=== PATIENT | male | born 1980 | race Caucasian/White ===

== ENCOUNTER → 2021-05-25 | Outpatient (CLI) | payer BC ==
[~2021-05-25] MED LIST: BUSP10TA PO; CIPR500T86 PO; ESCI20TA8 PO; LOSA100T14 PO; TRAM50TA PO
== END | disposition home or self-care (01) ==
LOC: NPLAB 13:15
PROVIDERS: ATTEND Urology
DX: Z98.52 Vasectomy status (principal)
CPT/HCPCS: 89310

== ENCOUNTER 2022-04-20 08:55 | Emergency (ER) | payer BC ==
[~2022-04-20] VITALS: Ht 182.9 cm; Wt 122.5 kg
--- NOTE | 2022-04-20 08:58 | NUR ---
ARRIVAL PT ARRIVED AMBULATORY TO ED 4 WITH C/O CHEST PAIN SINCE YESTERDAY. PT SAYS ITS CONSTANT AND A 4/10 AT THIS TIME. YESTERDAY IT WAS THE WORST PAIN HE HAS EVER FELT. VITALS, LABS, IV, EKG DONE AND DR NOTIFIED.
[2022-04-20 09:11] VITALS: BP 172/87
[2022-04-20] MEDS ORDERED: ASPIRIN ONE (09:19)
[2022-04-20 09:23] LABS: BASOPHIL % 0.4 % (0.0-0.2); EOSINOPHIL % 0.4 % (0.0-5.0); LYMPHOCYTES % 17.7 % (24.0-44.0); MEAN CORP HGB 30.6 pg (26-34); MONOCYTES # 0.8 10^3/uL (0.3-0.8); MONOCYTES % 18.4 % (5.0-12.0); NEUTROPHIL # 2.8 10^3/uL (1.8-7.7); NEUTROPHILS % 62.9 % (41.0-85.0); PLATELET COUNT 189 10^3/uL (150-400); RED CELL DISTRIBUTION WIDTH 12.3 % (11.5-14.5)
[2022-04-20] MEDS: ASPIRIN PO PRN (09:23)
--- NOTE | 2022-04-20 09:27 | PCM.EKG ---
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
--- NOTE | 2022-04-20 09:32 | ER.PDOC ---
General Chief Complaint: Chest Pain-Cardiac Nature Stated Complaint: CHEST PAINS,SOB Time seen by MD: 09:00 Source: patient Exam Limitations: no limitations History of Present Illness Initial Comments Patient is a 41-year-old man with past medical history of hypertension hypercholesterol who comes in with chest pain that started last night. Patient states that technically chest pain started yesterday afternoon but just got acutely worse last night. Patient states that it is like a pressure sensation that radiates up his neck patient states that the pain is worse when he lays flat and down better when he sits up. Patient states that he may have had some associated symptoms of some mild shortness of breath but denies any diaphoresis nausea or vomiting. Patient states that his brother at 39 of a heart attack so he she has been very diligent anytime he has chest pain to come in and get evaluated. Allergies: Coded Allergies: No Known Drug Allergies (Unverified Allergy, Unknown, 01/31/21) Home Meds Active Scripts Ciprofloxacin Hcl (CIPRO) 500 Mg Tablet, 1 TAB PO BID for 7 Days, #10 TAB 0 Refills Prov:TYE BOWSER MD 02/01/21 Tramadol Hcl (TRAMADOL HCL) 50 Mg Tablet, 50 MG PO Q6 PRN for PAIN, #20 TABLET Prov:TYE BOWSER MD 02/01/21 Reported Medications Buspirone Hcl (BUSPIRONE HCL) 10 Mg Tablet, 2 TAB PO HS, #60 TAB 1 Refill 01/31/21 Losartan Potassium (LOSARTAN POTASSIUM) 100 Mg Tablet, 1 TAB PO HS, #30 TAB 5 Refills 01/31/21 Escitalopram Oxalate (ESCITALOPRAM OXALATE) 20 Mg Tablet, 1 TAB PO HS, #30 TAB 5 Refills 01/31/21 Past Medical History Medical History: high cholesterol, hypertension Family History Significant Family History: other (Brother of heart attack at age 39) Social History Smoking: non-smoker Alcohol Use: heavy Drug Use: none Reviewed Nursing Reviewed: Vital Signs, Abn. Noted, Nursing Assessment Constitutional: denies no symptoms reported, denies see HPI, denies chills, denies diaphoresis, denies fever, denies malaise, denies weakness, denies other EENTM: throat pain Respiratory: shortness of breath Cardiovascular: chest pain Gastrointestinal: denies no symptoms reported, denies see HPI, denies abdomen distended, denies abdominal pain, denies blood streaked bowels, denies constipated, denies diarrhea, denies difficulty swallowing, denies nausea, denies poor appetite, denies poor fluid intake, denies rectal bleeding, denies vomiting, denies other Genitourinary: denies no symptoms reported, denies see HPI, denies burning, denies dysuria, denies discharge, denies frequency, denies flank pain, denies hematuria, denies incontinence, denies pain, denies urgency, denies other Musculoskeletal: denies no symptoms reported, denies see HPI, denies back pain, denies gout, denies joint pain, denies joint swelling, denies muscle pain, denies muscle stiffness, denies neck pain, denies other Skin: denies no symptoms reported, denies see HPI, denies change in color, denies change in hair/nails, denies dryness, denies lesions, denies lumps, denies rash, denies other Psychiatric/Neurological: denies no symptoms reported, denies see HPI, denies anxiety, denies depressed, denies emotional problems, denies headache, denies numbness, denies paresthesia, denies pre-existing deficit, denies seizure, denies tingling, denies tremors, denies weakness, denies other Endocrine: denies no symptoms reported, denies see HPI, denies excessive sweating, denies flushing, denies intolerance to cold, denies intolerance to heat, denies increased hunger, denies increased thrist, denies increased urine, denies unexplained weight gain, denies unexplaned weight loss, denies other Hematologic/Lymphatic: denies no symptoms reported, denies see HPI, denies anemia, denies blood clots, denies easy bleeding, denies easy bruising, denies swollen glands, denies other Physical Exam General Appearance: No Apparent Distress, WD/WN HEENT: PERRL/EOMI, Normal ENT Inspection, TMs Normal, Pharynx Normal Neck: Non-Tender, Full Range of Motion, Supple, Normal Inspection Respiratory: chest non-tender, lungs clear, normal breath sounds, no resp iratory distress, no accessory muscle use Cardiovascular: Normal Peripheral Pulses, Regular Rate, Rhythm, No Edema, No Gallop, No JVD, No Murmur Gastrointestinal: Normal Bowel Sounds, No Organomegaly, No Pulsatile Mass, Soft, Tenderness (MARK) Extremities: Normal Range of Motion, Non-Tender, Normal Inspection, No Pedal Edema, No Calf Tenderness, Normal Capillary Refill Neurologic/Psychiatric: digital 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 (04/20/22:13) Xr Chest 1v (04/20/22:13) Ekg-Routine (04/20/22 09:13) Aspirin (Aspirin) (04/20/22 09:30) Saline Lock (04/20/22:13) Troponin I High Sensitivity (04/20/22:13) Lipase (04/20/22 09:19) Helicobacter Pylori (04/20/22 09:19) Aspirin (Aspirin) (04/20/22 09:19) Vital Signs Date Time Temp Pulse Resp B/P (MAP) Pulse Ox O2 Delivery O2 Flow Rate FiO2 04/20/22 09:11 98.0 68 18 98 04/20/22 09:11 98.0 68 18 172/87 (115) 98 Room Air* 0 21 04/20/22 09:11 98.0 68 18 Administered Medications Medications (Trade) Dose Ordered Sig/Nik Route PRN Reason Start Time Stop Time Status Last Admin Dose Admin Aspirin (Aspirin) 325 mg DAILY PRN PO CHEST PAIN 04/20/22 09:30 05/20/22 09:29 04/20/22 09:23 325 MG Progress Progress Patient here with family history of cardiac at a young age. We will work- up for all cardiac causes ACS will also rule out pneumonia things like that with chest x-ray however patient has quite a bit of tenderness over his mid epigastric region so this definitely could be GERD peptic ulcer disease pancreatitis so we will work those up as well we will continue to monitor patient. We will go ahead and give aspirin and obtain EKG obtain labs chest x- ray and continue to monitor patient at this point. [id number] states that he feels good discussed with him at length his labs EKG chest x-ray all reassuring. Will discharge with pantoprazole. Discussed even though patient had already had an extensive cardiac work-up he needed to follow-up with his primary care doctor to see if further was warranted. Also discussed that this could be GERD versus peptic ulcer and that he may need ultimate referral to GI if we cannot get the pain under control. However at this time patient is pain-free after GI cocktail. Will discharge patient voiced understanding when to follow-up and when to return to the ER ER DEPART Departure Time of Disposition: 10:11 Disposition: 01 HOME / SELF CARE / HOMELESS Impression: Primary Impression: Chest pain Condition: Improved Patient Instructions: Chest Pain (Nonspecific), Heartburn Referrals: JONAS GARIBAY MD (PCP) PRIMARY CARE PROVIDER Additional Instructions: Please follow-up with your primary care provider within 1 week. If you have any new persistent or worsening symptoms or concerns seek medical attention. I have written you prescription for medication please take as directed. Duration or Time Spent with Pa: 35 Problem Qualifiers Primary Impression: Chest pain Chest pain type: unspecified Qualified Codes: R07.9 - Chest pain, unspecified KEESHA BURROWS MD Apr 20, 2022 09:32
[2022-04-20 09:36] LABS: CARBON DIOXIDE 28.5 mmol/L (20.0-32); GLUCOSE 98 mg/dL (70-110)
--- NOTE | 2022-04-20 09:43 | DIREP ---
PROCEDURE:CHEST 1 VIEW COMPARISON:None. INDICATIONS:chest pain FINDINGS: LUNGS/PLEURA:No significant pulmonary parenchymal abnormalities. No effusions. VASCULATURE:Normal. Unremarkable pulmonary vasculature. CARDIAC:Normal. No cardiac silhouette abnormality or cardiomegaly. MEDIASTINUM:Normal. No visible mass or adenopathy. BONES:Normal. No fracture or visible bony lesion. OTHER:Negative. CONCLUSION:No acute pulmonary process. Dictated by: Neva Sanches M.D. on 04/20/2022 at 09:39 AM
[2022-04-20] MEDS ORDERED: MYLANTA ONE (09:52)
[2022-04-20] MEDS: MYLANTA PO STA (09:52)
[2022-04-20 10:15] VITALS: BP 127/59
== END 2022-04-20 10:18 | disposition home or self-care (01) ==
LOC: ER 08:55
DX: R07.9 Chest pain, unspecified (principal); E78.00 Pure hypercholesterolemia, unspecified; I10 Essential (primary) hypertension; Z82.49 Family history of ischemic heart disease and other diseases of the circulatory system
CPT/HCPCS: 36415; 71045; 80053; 83690; 84484; 85025; 85610; 85730; 86677; 93005; 99284

== ENCOUNTER 2022-06-13 08:05 | Day surgery (SDC) | payer BC ==
[2022-06-11 09:10] VITALS: BP 117/66
--- NOTE | 2022-06-11 09:36 | PCM.EKG ---
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
[2022-06-11 09:46] LABS: BASOPHIL % 0.4 % (0.0-0.2); EOSINOPHIL # 0.1 10^3/uL (0.0-0.2); LYMPHOCYTES # 1.1 10^3/uL1 (1.0-4.8); LYMPHOCYTES % 21.2 % (24.0-44.0); MEAN CORP HGB 30.5 pg (26-34); MONOCYTES # 0.6 10^3/uL (0.3-0.8); MONOCYTES % 11.6 % (5.0-12.0); NEUTROPHIL # 3.4 10^3/uL (1.8-7.7); NEUTROPHILS % 65.6 % (41.0-85.0); RED CELL DISTRIBUTION WIDTH 12.4 % (11.5-14.5)
[2022-06-11 10:02] LABS: CARBON DIOXIDE 31.1 mmol/L (20.0-32)
[~2022-06-13] VITALS: Ht 182.9 cm; Wt 115.2 kg
[~2022-06-13 08:05] MED LIST changes: +ALPR1TAB6 PO; +ATOR20TA PO; +LACTATED RINGERS 1,000 ML IV SCH; +LACTATED RINGERS 1,000 ML ONE; +OLME20TA21 PO; +WATER ONE
[2022-06-13 08:15] VITALS: BP 125/70
[2022-06-13] MEDS ORDERED: VERSED ONE (09:20)
[2022-06-13] MEDS ORDERED: VERSED IV ONE (09:30)
[2022-06-13] MEDS ORDERED: ZOFRAN ONE (10:31)
[2022-06-13] MEDS ORDERED: DIPRIVAN IV ONE (10:31)
[2022-06-13] MEDS ORDERED: DECADRON ONE (10:32)
[2022-06-13] MEDS ORDERED: XYLOCAINE 2% 5ML VIAL ONE (10:33)
[2022-06-13 10:48] VITALS: BP_SYST 109; BP_SYST 111; BP_DIAS 62; BP_DIAS 65
[2022-06-13 11:04] VITALS: BP 105/61
--- NOTE | 2022-06-13 11:19 | OPH ---
DATE OF SURGERY: 06/13/2022 DICTATOR NAME: Lai Ashford DO PREOPERATIVE DIAGNOSIS: Upper abdominal pain. POSTOPERATIVE DIAGNOSES: * Gastritis. * Small sliding type hiatal hernia. SURGEON: Lai Ashford DO ADJUNCT PSYCHOLOGY INSTRUCTOR: OR staff. ANESTHESIA: General by Rios Lazaro CRNA. PROCEDURE PERFORMED: Esophagogastroduodenoscopy with biopsy. SPECIMENS: Gastric mucosa to path. ESTIMATED BLOOD LOSS: 5 mL COUNTS: At the completion of the case, the counts were correct as reported per OR staff. INDICATIONS: The patient is a very pleasant 41-year-old male, known from previous evaluation. DESCRIPTION OF PROCEDURE: Prior to procedure, informed consent was obtained. At the time of procedure, he was taken to the operative suite and placed in supine position. With appropriate monitoring in place, he was repositioned in left lateral recumbent position. A preprocedure safety checklist with a timeout was completed with the assistance of the patient and the nursing service. With excellent sedation, esophagogastroduodenoscope was advanced transorally with pneumoinsufflation distally in the second portion of duodenum. Once the duodenum was adequately visualized, camera was slowly withdrawn to facilitate visualization of duodenal bulb and the pylorus. Distal stomach and the body of stomach shows gastritis and biopsies were obtained. The retroflex maneuver was performed. A small sliding type hiatal hernia was approximately Hill grade 2 was identified. Fundus within normal limits. Camera was reduced. Stomach decompressed, scope was slowly withdrawn. Distal, mid and proximal esophagus were essentially within normal limits. The vocal cords were visualized, within normal limits. Camera was removed. Procedure discontinued. The patient tolerated this procedure well with no acute complications noted. Fiona Turk. Lai Ashford D.O., DR: CARL HILL: [id number] RECEIPT: [id number]
[2022-06-13 11:30] VITALS: BP 123/83
== END 2022-06-13 11:37 | disposition home or self-care (01) ==
LOC: SDC 08:05
PROVIDERS: ATTEND Surgery
DX: R10.13 Epigastric pain (principal); K29.50 Unspecified chronic gastritis without bleeding; K44.9 Diaphragmatic hernia without obstruction or gangrene; K31.89 Other diseases of stomach and duodenum; K21.9 Gastro-esophageal reflux disease without esophagitis; F41.9 Anxiety disorder, unspecified; K25.9 Gastric ulcer, unspecified as acute or chronic, without hemorrhage or perforation; I10 Essential (primary) hypertension; E78.5 Hyperlipidemia, unspecified; E66.9 Obesity, unspecified; Z68.34 Body mass index [BMI] 34.0-34.9, adult; Z82.49 Family history of ischemic heart disease and other diseases of the circulatory system; Z83.3 Family history of diabetes mellitus; Z90.3 Acquired absence of stomach [part of]; Z98.52 Vasectomy status; Z79.899 Other long term (current) drug therapy
CPT/HCPCS: 80053; 85025; 36415; 85610; 85730; 93005; 43239; 88305; J7120 ×2; J1100; J3490; J2001; J2405; J2250